=== PATIENT | male | born 2000 | race Two or more races ===

== ENCOUNTER 2024-02-05 02:47 | Emergency (ER) | payer MEDICAID, SELFPAY ==
[2024-02-05 02:47] VITALS: BMI 32.8
[2024-02-05 03:00] VITALS: BP 124/85; PULSE 63; RESP 19; TEMP 36.6; O2SAT 98
--- NOTE | 2024-02-05 03:10 | EDRME_ITS ---
Rapid Medical Screening Exam [facility] Arrival date/time: 02/05/24 02:47 23M with no significant PMH presents to ED with 2 days of epigastric pain and non-bloody diarrhea. Patient denies N/V. Patient has had gastritis before and states this feels similar. Chief Complaint: Abdominal Pain Vital signs: Vital Signs Temperature 98 F 02/05/24 03:00 Pulse Rate 63 02/05/24 03:00 Respiratory Rate 19 02/05/24 03:00 Blood Pressure 124/85 H 02/05/24 03:00 Pulse Oximetry (%) 98 02/05/24 03:00 Oxygen Delivery Method Room Air 02/05/24 03:00
[2024-02-05] MEDS: FAMOTIDINE 20 MG TABLET 40 MG PO (03:34)
[2024-02-05 03:35] LABS: Bilirubin,Urine Negative (Negative); Blood,Urine Negative (Negative); Clarity,Urine Clear (Clear/Hazy); Collection Type, Urine Clean Catch; Color,Urine Lt-Yellow (Lt Yel-Yel); Glucose, Urine Negative (Negative); Ketones,Urine Negative (Negative); Leukocyte Esterase,Urine Negative (Negative); Nitrite,Urine Negative (Negative); Protein,Urine Trace (Neg - Trace); RBC,Urine 2 /hpf (0-3); Squamous Epithelial Cell,Urine < 1 /hpf (0-5); Urobilinogen,Urine Negative mg/dL (0.0-1.0); WBC,Urine 1 /hpf (0-5)
[2024-02-05] MEDS: MG HYD/AL HYD/SIME (Maalox Reg) SUSP 30 ML UDC PO (03:35)
[2024-02-05 03:41] LABS: Basophils # (Auto) 0.1 Thou/mm3 (0.0-0.2); Basophils % (Auto) 1 % (0-2.5); Eosinophils # (Auto) 0.2 Thou/mm3 (0.0-0.5); Eosinophils % (Auto) 3 % (0-10); Hematocrit 46.3 % (41.0-53.0); Hemoglobin 16.7 g/dL (13.5-16.0); Immature Granulocytes % (Auto) 0 % (0-0); Immature Granulocytes Auto 0.02 Thou/mm3 (0.00-0.00); Lymphocytes % (Auto) 26 % (10-50); Mean Corpuscular HGB Conc 36.1 g/dl (31.0-37.0); Mean Corpuscular Hemoglobin 32.6 pg (25.0-35.0); Mean Corpuscular Volume 90 fL (80-100); Monocytes # (Auto) 0.8 Thou/mm3 (0.0-0.8); Monocytes % (Auto) 10 % (0-12); Neutrophils # (Auto) 4.6 Thou/mm3 (1.8-7.7); Neutrophils % (Auto) 60 % (37-80); Nucleated Red Blood Cell % 0 /100 WBC (0); Platelet Count 245 Thou/mm3 (140-440); RDW Standard Deviation 39.4 fL (35.1-43.9); Red Blood Count 5.12 Miln/mm3 (4.50-5.90); White Blood Count 7.6 Thou/mm3 (3.8-10.6)
[2024-02-05 03:48] LABS: Amphetamine/Methamp Scrn,U Negative (Negative); Barbiturate Screen,Urine Negative (Negative); Benzodiazepines Screen,Urine Negative (Negative); Benzoylecgonine Screen, Ur Negative (Negative); Fentanyl Screen,Urine Negative (Negative); Opiate Screen,Urine Negative (Negative); THC Screen,Urine Negative (Negative)
[2024-02-05 04:04] LABS: Alanine Aminotransferase 103 U/L (10-49); Albumin, Serum 4.9 gm/dL (3.5-5.0); Albumin/Globulin Ratio 1.8 (1.2-2.2); Alcohol, Blood Medical < 3.0 mg/dL (0-10.0); Alkaline Phosphatase 94 U/L (46-116); Anion Gap 7 (7-16); Aspartate Amino Transferase 36 U/L (0-34); BUN/Creatinine Ratio 13 Ratio (12-20); Bilirubin,Total 0.5 mg/dL (0.3-1.2); Blood Urea Nitrogen 18 mg/dL (9-23); Calcium 10.1 mg/dL (8.3-10.6); Calcium (Corrected) 10.1 mg/dL (8.5-10.1); Carbon Dioxide 28.9 mMol/L (20.0-31.0); Chloride 100 mMol/L (98-107); Creatinine (Component) 1.4 mg/dL (0.6-1.3); Estimated Creatinine Clearance 89.5 mL/min (>60); Globulin 2.8 gm/dL (2.3-3.5); Glucose 103 mg/dL (74-106); Lipase 37 U/L (12-53); Osmolality,Calculated 273 (275-295); Potassium 3.8 mMol/L (3.4-5.1); Sodium 136 mMol/L (136-145); Total Protein 7.7 gm/dL (5.7-8.2); eGFR > 60 See Note
--- NOTE | 2024-02-05 04:24 | PD.EDABDPN ---
ED Abdominal Pain RME/HPI General Chief Complaint: Abdominal Pain Stated complaint: ABD PAIN /DIARRHEA X 2DAYS Time seen by provider: 02/05/24 04:24 Arrival date/time: 02/05/24 02:47 RME / HPI RME / HPI narrative: 02/05/24 02:47 23M with no significant PMH presents to ED with 2 days of epigastric pain and non-bloody diarrhea. Patient denies N/V. Patient has had gastritis before and states this feels similar. ------ Dr. Lin?s Main ED Evaluation: 23yo male with no significant past medical or surgical history presents to the ED for a chief complaint of epigastric pain x yesterday. No radiation or migration. Patient states his pain worsens when he sits up, currently rating his pain a 10 out of 10 in severity. He reports associated diarrhea. He states he took omeprazole at home without any alleviation of symptoms and could not tolerate the pain any longer, so he came in for evaluation. He denies any N/V, fever, chills or any other associated symptoms. No known allergies. Related Data Previous Rx's ?Medication ?Instructions ?Recorded omeprazole 20 mg capsule,delayed 20 mg PO QDAY #30 caps 07/03/17 release ibuprofen 800 mg tablet 800 mg PO TID PRN pain #30 tabs 12/23/19 Allergies Allergy/AdvReac Type Severity Reaction Status Date / Time No Known Allergies Allergy Verified 12/23/19 15:00 Review of Systems Review of Systems Systems Reviewed: All systems reviewed, normal except as documented Past Medical History Past Medical History CARDIAC: Negative Congestive Heart Failure RESPIRATORY: Negative Chronic Obstructive Pulmonary Disease (COPD) GENITOURINARY: Negative Renal Disease ENDOCRINE: Negative Diabetes Mellitus Type 1 or Diabetes Mellitus Type 2 Social History SMOKING STATUS: Never smoker ED Exam Narrative Physical exam: GENERAL APPEARANCE: alert and oriented x 4, well-developed, well-nourished, no acute distress VITALS: All vitals were reviewed and the pulse ox is 98% on room air, which is normal according to my interpretation. HEENT: Normocephalic, atraumatic; pupils equal, round, reactive to light; EOMI; mucous membranes pink, moist; oropharynx clear NECK: Supple LUNGS: CTABL; no wheezes, no rales, no rhonchi HEART: Regular rate, regular rhythm; normal S1, S2; no murmurs ABDOMEN: non distended; normal BS; soft, moderate epigastric and RUQ tenderness without rebound or guarding. + Raymond sign. Mild RLQ tenderness, no guarding, no rebound; no masses, no organomegaly, no hernia BACK: no CVA tenderness EXTREMITIES: atraumatic; no edema NEUROLOGIC: awake; alert and oriented x4; cranial nerves II-XII grossly intact; no focal sensory or motor deficits PSYCHIATRIC: appropriate mood and affect SKIN: warm, dry, normal color; no rashes Course Quality Measures none Orders Category Date Time Status CT Screening NOW Care 02/05/24 04:31 Active IV [Insert IV] NOW Care 02/05/24 04:[address] abdomen pelvis w con Stat Exams 02/05/24 04:31 Taken US gall bladder Stat Exams 02/05/24 04:31 Taken XR chest 1V portable Stat Exams 02/05/24 04:31 Taken Alcohol, Blood Medical Stat Lab 02/05/24 03:34 Completed CBC Stat Lab 02/05/24 03:34 Completed CMP [Comprehensive Metabolic Panel] Stat Lab 02/05/24 03:34 Completed Drug Screen,Urine Stat Lab 02/05/24 03:28 Completed Lipase Stat Lab 02/05/24 03:34 Completed UA [Urinalysis] Stat Lab 02/05/24 03:28 Completed Famotidine [Pepcid] Med 02/05/24 03:09 Discontinued 40 mg PO X1 ONE HYDROmorphone INJ [Dilaudid Inj] Med 02/05/24 04:30 Discontinued 0.5 mg IVP PRN HYDROmorphone INJ [Dilaudid Inj] Med 02/05/24 04:38 Discontinued 0.5 mg IVP X1 ONE Ondansetron Inj [Zofran Inj] Med 02/05/24 04:30 Discontinued 4 mg IV X1 ONE Pantoprazole Inj [Protonix Inj] Med 02/05/24 04:30 Discontinued 40 mg IVP X1 ONE Sucralfate [Carafate] Med 02/05/24 04:30 Discontinued 1 gm PO X1 ONE mg Hyd/Al Hyd/Luis Daniel Susp [Maalox Susp] Med 02/05/24 03:09 Discontinued 30 ml PO X1 ONE mg Hyd/Al Hyd/Luis Daniel Susp [Maalox Susp] Med 02/05/24 04:30 Discontinued 30 ml PO X1 ONE Vital Signs Vital signs: Vital Signs Temperature 98 F 02/05/24 03:00 Pulse Rate 63 02/05/24 03:00 Respiratory Rate 19 02/05/24 03:00 Blood Pressure 124/85 H 02/05/24 03:00 Pulse Oximetry (%) 98 02/05/24 03:00 Oxygen Delivery Method Room Air 02/05/24 03:00 Abdominal Pain MDM Patient data External records reviewed:: [facility] previous records (Per chart review, patient has no relevant previous ED visits or admissions to this facility.) Clinical information provided by:: patient Social determinants that could affect healthcare access:: none Patient has the following chronic illnesses:: none How is presenting disease/condition affected by chronic disease/condition?: no chronic disease Evaluation data The following diagnostics were reviewed and interpreted by me:: lab results and radiology exam(s) Lab and/or radiology exams considered but not ordered:: none Interpretation Summary: CBC is normal, AST and ALT are slightly elevated, Lipase is normal, UA is unremarkable, UDS is negative, Blood alcohol is negative, according to my interpretation. Medications / Prescriptions Medications or Prescriptions considered but not ordered:: none Medication administrations:: Medication Administration History Discontinued Medications Al Hydrox/Mg Hydrox/Simethicone (Mg Hyd/Al Hyd/Luis Daniel (Maalox Reg) Susp 30 Ml Udc) 30 ml PO X1 ONE Stop: 02/05/24 03:10 Last Admin: 02/05/24 03:35 Dose: 30 ml Documented By: HERSON Al Hydrox/Mg Hydrox/Simethicone (Mg Hyd/Al Hyd/Luis Daniel (Maalox Reg) Susp 30 Ml Udc) 30 ml PO X1 ONE Stop: 02/05/24 04:31 Last Admin: 02/05/24 04:57 Dose: Not Given Documented By: SF Non-Admin Reason: Cancelled by Provider Famotidine (Famotidine 20 Mg Tablet) 40 mg PO X1 ONE Stop: 02/05/24 03:10 Last Admin: 02/05/24 03:34 Dose: 40 mg Documented By: HERSON Hydromorphone HCl (Hydromorphone Inj 2 Mg/Ml Vial) 0.5 mg IVP PRN MANJIT Stop: 02/10/24 04:29 Hydromorphone HCl (Hydromorphone Inj 2 Mg/Ml Vial) 0.5 mg IVP X1 ONE Stop: 02/05/24 04:39 Last Admin: 02/05/24 04:56 Dose: 0.5 mg Documented By: BRYANNA Ondansetron HCl (Ondansetron Inj 2 Mg/Ml Inj 2 Ml) 4 mg IV X1 ONE; Protocol Stop: 02/05/24 04:31 Last Admin: 02/05/24 04:56 Dose: 4 mg Documented By: BRYANNA Pantoprazole Sodium (Pantoprazole Inj 40 Mg Vial) 40 mg IVP X1 ONE Stop: 02/05/24 04:31 Last Admin: 02/05/24 04:56 Dose: 40 mg Documented By: BRYANNA Sucralfate (Sucralfate 1 Gm Tablet) 1 gm PO X1 ONE Stop: 02/05/24 04:31 see above Consultations Consultation(s) initiated? (list below): No Diagnosis Differential diagnosis abdominal pain: acute appendicitis and other (cholelithiasis, cholecystitis, dehydration, electrolyte abnormality) Most likely diagnosis given after review of the tests above:: see below Admission Indicated Admission indicated?: not indicated Admission Request Was there a request for admission?: No Disposition Plan Disposition Plan: other (specify) (Care of the patient signed out to Dr. Cruz pending patient's CT abdomen pelvis and right upper quadrant ultrasound. ) Discharge Plan Prescriptions/Referrals Prescriptions/Med Rec: No Action omeprazole 20 mg capsule,delayed release(DR/EC) 20 mg PO QDAY Qty: 30 0RF Rx Instructions: swallow whole; do not crush, chew, dissolve, cut, break ibuprofen 800 mg tablet 800 mg PO TID PRN (Reason: pain) Qty: 30 0RF Referrals: Temporary Provider,ED [Physician] - In 1 week Problem List Clinical Impression: Abdominal pain Patient/Caregiver Discharge Instructions Print Language: Bulgarian
--- NOTE | 2024-02-05 04:31 | XR_ITS ---
Examination: CT abdomen with intravenous contrast CT pelvis with intravenous contrast 2-D coronal reconstructions 2-D sagittal reconstructions Date and time of exam:February 05, 2024 at 0539 hrs. Indications: Right-sided abdominal pain and diarrhea beginning 2 days ago. CTDI: vol (mGy) 8.95 DLP: (mGycm) 565 Technique: Multiple axial sections of the abdomen and pelvis have been obtained. 64 slice high-resolution scanner used. 3 mm axial sections have been obtained, post intravenous injection 30 cc [id number] 2-D sagittal, coronal reconstructions obtained. Low dose protocols were performed. One or more of the following dose reduction techniques were used; automated exposure control, adjustment of the mA and/or KV according to patient size, use of iterative reconstruction technique. Findings: No focal liver or splenic lesions No gallstones No pancreatic or adrenal mass No renal or ureteral calculi Aorta normal size No bowel obstruction Tiny fat-containing umbilical hernia Normal appendix No bowel obstruction No diverticulitis Negative for prostatomegaly Urinary bladder intact Osseous structures are intact Impression: No acute process in the abdomen or pelvis
--- NOTE | 2024-02-05 04:31 | XR_ITS ---
Examination: Abdomen sonogram, Limited Date and time of exam: February 05, 2024 0448 hrs. Indications: Onset epigastric pain beginning several hours ago Technique: Real-time leyva scale transabdominal sonographic images of the upper abdomen obtained. Findings: Normal gallbladder Normal common bile duct 0.3 cm Pancreatic head 2.9 cm Liver 17.8 cm fatty infiltration no focal liver lesions Normal hepatopedal portal venous flow Patent IVC Impression: Normal gallbladder Mild hepatomegaly fatty liver
--- NOTE | 2024-02-05 04:31 | XR_ITS ---
Examination: AP chest single view Technique: AP portable upright chest single view Exam date and time: February 05, 2024 0443 hrs. Comparison April 25, 2012 Indications: Onset upper abdominal pain beginning 2 days ago. Findings: Normal heart size Reduced inspiratory effort No pneumonia or pulmonary edema Impression: Poor inspiratory effort chest x-ray
[2024-02-05] MEDS: ONDANSETRON INJ 2 MG/ML INJ 2 ML 4 MG IV (04:56)
[2024-02-05] MEDS: PANTOPRAZOLE INJ 40 MG VIAL IVP (04:56)
[2024-02-05] MEDS: HYDROmorphone INJ 2 MG/ML VIAL 0.5 MG IVP (04:56)
--- NOTE | 2024-02-05 05:55 | EDNOTE_ITS ---
Emergency Room Addendum <Porfirio Cruz MD - Last Filed: 02/05/24 05:55> Addendum Narrative: Care Transitioned from Dr. Lin <Elaine Garcia - Last Filed: 02/05/24 09:08> Addendum Narrative: 0600: Care assumed from Dr. Lin, the previous shift emergency physician. Past medical, surgical, social and family history reviewed. Vitals and home medications reviewed. I will assume the care of the patient at this time, pending CT abdomen pelvis w con and US gallbladder. Please refer to the emergency department record for history and examination from initial visit.? Nursing notes reviewed by me. Vital signs reviewed by me. [place] medical records reviewed by me. 0907: Patient is pain free at this time and my examination is unremarkable. Patient remains clinically stable throughout the emergency department visit. We reviewed all the results, analysis, and treatment plans. Patient is amenable to discharge. Strict return precautions were outlined. Patient was discharged in stable condition. DISPOSITION: Home DIAGNOSIS: Gastritis RADIOLOGY Ordering Physician: Filippo Lin MD Date of Service: 02/05/24 Procedure(s): CT abdomen pelvis w con Accession Number(s): [id number] cc: Casper Gutierrez ; Ernesto Aguilar MD; Filippo Lin MD~ Examination: CT abdomen with intravenous contrast CT pelvis with intravenous contrast 2-D coronal reconstructions 2-D sagittal reconstructions Date and time of exam:February 05, 2024 at 0539 hrs. Indications: Right-sided abdominal pain and diarrhea beginning 2 days ago. CTDI: vol (mGy) 8.95 DLP: (mGycm) 565 Technique: Multiple axial sections of the abdomen and pelvis have been obtained. 64 slice high-resolution scanner used. 3 mm axial sections have been obtained, post intravenous injection 30 cc [id number] 2-D sagittal, coronal reconstructions obtained. Low dose protocols were performed. One or more of the following dose reduction techniques were used; automated exposure control, adjustment of the mA and/or KV according to patient size, use of iterative reconstruction technique. Findings: No focal liver or splenic lesions No gallstones No pancreatic or adrenal mass No renal or ureteral calculi Aorta normal size No bowel obstruction Tiny fat-containing umbilical hernia Normal appendix No bowel obstruction No diverticulitis Negative for prostatomegaly Urinary bladder intact Osseous structures are intact Impression: No acute process in the abdomen or pelvis Dictated By: Ernesto Aguilar MD Signed By: <Electronically signed by Ernesto Aguilar MD in OV> 02/05/24 0733 Ordering Physician: Filippo Lin MD Date of Service: 02/05/24 Procedure(s): US gall bladder Accession Number(s): [id number] cc: Casper Gutierrez ; Ernesto Aguilar MD; Filippo Lin MD~ Examination: Abdomen sonogram, Limited Date and time of exam: February 05, 2024 0448 hrs. Indications: Onset epigastric pain beginning several hours ago Technique: Real-time leyva scale transabdominal sonographic images of the upper abdomen obtained. Findings: Normal gallbladder Normal common bile duct 0.3 cm Pancreatic head 2.9 cm Liver 17.8 cm fatty infiltration no focal liver lesions Normal hepatopedal portal venous flow Patent IVC Impression: Normal gallbladder Mild hepatomegaly fatty liver Dictated By: Ernesto Aguilar MD Signed By: <Electronically signed by Ernesto Aguilar MD in [place]> 02/05/24 0745
--- NOTE | 2024-02-05 06:14 | PRELIM_ITS ---
CT scan of the abdomen and pelvis with intravenous contrast (axial sections with sagittal and coronal reformats) February 05, 2024 0539 hoursClinical History: right sided abd painNo prior study is avail able for comparison. Findings:The lung bases are clear.The liver, gallbladder, pancreas, spleen, kidn eys and adrenals are unremarkable.No evidence of bowel obstruction. The appendix is within normal doan its (coronal images 64-67/149). There is no mesenteric or retroperitoneal adenopathy.The urinary blad bakari is unremarkable. There is no free fluid or free air.The osseous structures are unremarkable.Impre ssion:No evidence of bowel obstruction, free air or abscess. Report Electronically Signed By: Kiera Shah 02/05/2024 6:13:32 AM [EST]
[2024-02-05 07:33] VITALS: BP 124/75; PULSE 55; RESP 18; TEMP 36.6; O2SAT 98
== END 2024-02-05 09:18 | disposition home or self-care (01) ==
PROVIDERS: Physician Assistant; Emergency Provider Emergency Medicine; PCP Physician Assistant
DX: K29.70 Gastritis, unspecified, without bleeding (principal); K76.0 Fatty (change of) liver, not elsewhere classified; R10.10 Upper abdominal pain, unspecified
CPT/HCPCS: 36415; 71045; 74177; 76705; 80053; 80307; 80320; 81001; 83690; 85025; 96374; 96375; 99285; A4649; J2405; J2470; J3490; Q9967; A9270; G0480